=== PATIENT | male | born 1995 | race Two or more races ===

== ENCOUNTER 2017-05-21 03:13 | Emergency (ER) | payer SELFPAY ==
[~2017-05-21 03:13] MED LIST: MIDAZOLAM 2 MG/2 ML VIAL IM ONE
[2017-05-21 03:43] VITALS: TEMP 97.9
--- NOTE | 2017-05-21 06:21 | EDPHY ---
H & P Stated Complaint: MAS-etoh and LSD Source: Patient, EMS - Personal History Current Tetanus Diphtheria and Acellular Pertussis (TDAP): Unsure - Medical/Surgical History Other PMH: unknown - Social History Smoking Status: Unknown if ever smoked Time Seen by Provider: 05/21/17 05:29 HPI/ROS: HPI The patient presents with intoxication and altered mental status. The patient is brought in by ambulance after being found [place] the bushes on the [facility]. He seems intoxicated, he was able to walk but stumbled bit. When he got into the ambulance he began yelling and screaming. He was given Haldol 5 mg with some improvement in his symptoms. Denies any complaints currently. REVIEW OF SYSTEMS Constitutional: No fever, no chills. Eyes: No discharge. ENT: No sore throat. Cardiovascular: No chest pain, no palpitations. Respiratory: No cough, no shortness of breath. Gastrointestinal: No abdominal pain, no vomiting. Genitourinary: No hematuria. Musculoskeletal: No back pain. Skin: No rashes. Neurological: No headache. PMHx: Healthy Soc Hx: Apparent alcohol use PHYSICAL General Appearance: Alert, agitated, yelling and screaming, wearing a spit mask Eyes: Pupils equal and round, dilated, not injected ENT, Mouth: Mucous membranes moist Respiratory: There are no retractions, lungs are clear to auscultation Cardiovascular: Regular rate and rhythm Gastrointestinal: Abdomen is soft and non-tender, no masses, bowel sounds normal Neurological: A&O, moves all extremities Skin: Warm and dry, no rashes Musculoskeletal: Neck is supple non tender Extremities: symmetrical, full range of motion Psychiatric: Patient is agitated (Riguzzi,Rose) Constitutional: Initial Vital Signs Temperature (C) 36.6 C 05/21/17 03:15 Heart Rate 110 H 05/21/17 03:15 Respiratory Rate 24 H 05/21/17 03:15 Blood Pressure 115/74 05/21/17 03:15 O2 Sat (%) 96 05/21/17 03:15 O2 Delivery Mode Nasal Cannula O2 (L/minute) 2 Allergies/Adverse Reactions: Unable to Assess Allergy (Unverified 05/21/17 03:41) Home Medications: Medication Instructions Recorded Unobtainable 05/21/17 Medical Decision Making Differential Diagnosis: This is a 21-year-old male who presents brought in by ambulance for presumed alcohol intoxication with altered mental status. On exam, he is yelling and screaming, quite agitated, in restraints, wearing a spit mask. I met the paramedics at the bedside to obtain their report. The patient was given Versed 5 mg IM. He was then able to rest. Differential diagnosis includes alcohol intoxication, hallucinogen use, less likely closed head injury. In the emergency department, the patient was observed for several hours. He has normal vital signs and slept. He had no signs of external trauma. (Rose Vega) Other Provider: I assumed care of the patient at 7 o'clock in the morning pending sobriety and reassessment. I evaluated the patient personally at 7:15 p.m.. He is quite somnolent arousable to painful stimuli. I see no evidence of any external head trauma. The patient is able to move all 4 extremities. There is alcohol on the patient' s breath. I did obtain a blood alcohol level at 7:30 a.m. which demonstrates a persistently elevated BAL of 0.295. The patient is currently protecting his airway. He is in no acute distress. There is no evidence of additional trauma. Plan will be for ongoing ED observation for continued sobriety. 11:00 a.m.: The patient continues to sober. He is now able to ambulate with assistance to the bathroom. He denies any acute medical complaints. Patient was reexamined again at 1:00 p.m.. He is now ambulatory. He has no acute complaints. He denies any suicidal or homicidal thoughts. He reported that he drank in excess while partying last night. The patient has been informed of the potential lethal consequences of severe alcohol intoxication. The patient will be discharged home with a sober ride. He is given customary aftercare instructions and return precautions. (Andrew Parada) - Data Points Laboratory Results: 05/21/17 07:42 Ethyl Alcohol 295 mg/dL H mg/dL (0-10) Medications Given: Discontinued Medications Midazolam HCl (Versed) 5 mg IM EDNOW ONE Stop: 05/21/17 03:11 Last Admin: 05/21/17 03:36 Dose: 5 mg Departure - Departure Disposition: Home, Routine, Self-Care Clinical Impression: Alcoholic intoxication Qualifiers: Complication of substance-induced condition: with delirium Qualified Code(s): F10.921 - Alcohol use, unspecified with intoxication delirium Condition: Good Instructions: Alcohol Intoxication (ED) Referrals: ELENA Ambrosio,. [Clinic] - As per Instructions
[2017-05-21 08:10] LABS: ETHANOL SERUM 295 mg/dL (0-10)
[2017-05-21 08:47] VITALS: RESP 18
[2017-05-21 10:21] VITALS: BP 118/72; PULSE 93; O2SAT 97
== END 2017-05-21 12:52 | disposition home or self-care (01) ==
DX: F10.921 Alcohol use, unspecified with intoxication delirium (principal)
CPT/HCPCS: G0480